=== PATIENT | female | born 1990 | race Caucasian/White ===

== ENCOUNTER 2020-03-16 18:55 | Inpatient (IN) | payer OTHER ==
[2020-03-16] MEDS ORDERED: VITAFOL-OB+DHA1 EACH PO (20:01)
[2020-03-16] MEDS ORDERED: TYLENOL325 M1 PO (20:02)
--- NOTE | 2020-03-16 21:19 | PR ---
[facility] [address] [place] [address] Signed Progress Notes IP Datetime Report Generated by CPN: 03/16/2020 21:19 PROGRESS NOTES: [id number] Impression: Normal Progression of Labor Procedures: Artificial ROM Plan: Continue Present Management; Anticipate Vaginal Delivery VITAL SIGNS: [id number] Vital Signs: Reviewed; Within Normal Limits EXAM: [id number] Dilatation: 7.0 Effacement: 50 Station: -3 Contractions: none MEMBRANES: [id number] Membranes Status: Ruptured Comments: Still not feeling many contractions, doing wel. FETUS A: [id number] Presentation: Vertex FETUS B: [id number] Signing Physician: Yomi Fall MD Copies: ~ *Electronically Signed* 03/16/202118 YOMI FALL MD PATIENT NAME: OLYA GAMA PROGRESS NOTE DATE OF : 86 PHYSICIAN: YOMI FALL MD RPT #: [id number] REPORT IS CONFIDENTIAL AND NOT TO BE RELEASED WITHOUT AUTHORIZATION
--- NOTE | 2020-03-17 10:56 | PR ---
[facility] [address] [place] [address] Signed PP Progress Notes Datetime Report Generated by CPN: 03/17/2020 10:55 SUBJECTIVE: [id number] Pain: Within Normal Limits Nausea/Vomiting: Denies Vital Signs: [id number] Vital Signs: Reviewed; Within Normal Limits Abdomen/Uterus: Normal Lochia: Normal Extremities: Normal Incision: Normal Exam Comments: dressing clean and dry IMPRESSION/PLAN/PROCEDURES: [id number] Impression: Normal Progression Plan: Continue Present Management Procedures: None Progress Notes: Doing well, without complaint, up sitting in chair, voiding without difficulty. tolerating food well. WIll try abdominal binder. Signing Physician: Yomi Fall MD Copies: ~ *Electronically Signed* 03/17/20 1055 YOMI FALL MD PATIENT NAME: OLYA GAMA PROGRESS NOTE DATE OF : 86 PHYSICIAN: YOMI FALL MD RPT #: [id number] REPORT IS CONFIDENTIAL AND NOT TO BE RELEASED WITHOUT AUTHORIZATION
--- NOTE | 2020-03-17 10:59 | PR ---
[facility] [address] [facility] [place] [address] Signed PP Progress Notes Datetime Report Generated by CPN: 03/17/2020 10:58 SUBJECTIVE: [id number] Pain: Within Normal Limits Nausea/Vomiting: Denies Vital Signs: [id number] Vital Signs: Reviewed; Within Normal Limits Abdomen/Uterus: Normal Lochia: Normal Extremities: Normal Incision: Normal Exam Comments: dressing clean and dry IMPRESSION/PLAN/PROCEDURES: [id number] Impression: Normal Progression Plan: Continue Present Management Procedures: None Progress Notes: Doing well, without complaint, Sixto sheikh removed this am. Signing Physician: Brayden Fall MD Copies: ~ *Electronically Signed* 03/17/20 1058 BRAYDEN FALL MD PATIENT NAME: OLYA GAMA PROGRESS NOTE DATE OF : 86 PHYSICIAN: BRAYDEN FALL MD RPT #: [id number] REPORT IS CONFIDENTIAL AND NOT TO BE RELEASED WITHOUT AUTHORIZATION
--- NOTE | 2020-03-17 11:00 | PR ---
[facility] [address] [facility] [place] [address] Signed PP Progress Notes Datetime Report Generated by CPN: 03/17/2020 11:00 SUBJECTIVE: [id number] Pain: Within Normal Limits Nausea/Vomiting: Denies Vital Signs: [id number] Vital Signs: Reviewed; Within Normal Limits Abdomen/Uterus: Normal Lochia: Normal Extremities: Normal Incision: Normal Exam Comments: dressing clean and dry IMPRESSION/PLAN/PROCEDURES: [id number] Impression: Normal Progression Plan: Continue Present Management Procedures: None Progress Notes: Doing well, without complaint, Sixto sheikh removed this am. Signing Physician: Brayden Fall MD Copies: ~ *Electronically Signed* 03/17/20 1100 BRAYDEN FALL MD PATIENT NAME: OLYA GAMA PROGRESS NOTE DATE OF : 86 PHYSICIAN: BRAYDEN FALL MD RPT #: [id number] REPORT IS CONFIDENTIAL AND NOT TO BE RELEASED WITHOUT AUTHORIZATION
--- NOTE | 2020-03-18 12:59 | PR ---
[facility] [address] [place] [address] Signed PP Progress Notes Datetime Report Generated by CPN: 03/18/2020 12:59 SUBJECTIVE: [id number] Pain: Within Normal Limits Nausea/Vomiting: Denies Vital Signs: [id number] Vital Signs: Reviewed; Within Normal Limits Notable Details: PP Hgb/Hct = 9.6/27.9 Abdomen/Uterus: Normal Lochia: Normal Extremities: Normal Incision: Normal Exam Comments: dressing clean and dry IMPRESSION/PLAN/PROCEDURES: [id number] Impression: Normal Progression Other Impression: PP Depression Plan: Continue Present Management Other Plans: Rx: Sertraline Procedures: None Progress Notes: Patient admitsd to being stressed, anxious, no thoughts of hurting self or baby, is feeling better that yesterday. Discussed PP Depression, treatment, medication. Chai feels medication would help her coping with PP period, so will start Sertraline, discussed risks vs benefiots. Questions answered. Signing Physician: Brayden Fall MD Copies: ~ *Electronically Signed* 03/18/20 1259 BRAYDEN FALL MD PATIENT NAME: OLYA GAMA PROGRESS NOTE DATE OF : 86 PHYSICIAN: BRAYDEN FALL MD RPT #: [id number] REPORT IS CONFIDENTIAL AND NOT TO BE RELEASED WITHOUT AUTHORIZATION
--- NOTE | 2020-03-19 12:13 | PR ---
[facility] [address] [facility] [place] [address] Signed PP Progress Notes Datetime Report Generated by CPN: 03/19/2020 12:13 SUBJECTIVE: [id number] Pain: Within Normal Limits Nausea/Vomiting: Denies Vital Signs: [id number] Vital Signs: Reviewed; Within Normal Limits Notable Details: PP Hgb/Hct = 9.6/27.9 Abdomen/Uterus: Normal Lochia: Normal Extremities: Normal Incision: Normal Exam Comments: dressing clean and dry IMPRESSION/PLAN/PROCEDURES: [id number] Impression: Normal Progression Other Impression: PP Depression Plan: Discharge Other Plans: Rx: Sertraline Procedures: None Progress Notes: Doing well, feeling better, without complaint, ready to go home. Signing Physician: Yomi Fall MD Copies: ~ *Electronically Signed* 03/19/20 1213 YOMI FALL MD PATIENT NAME: OLYA GAMA PROGRESS NOTE DATE OF : 86 PHYSICIAN: YOMI FALL MD RPT #: [id number] REPORT IS CONFIDENTIAL AND NOT TO BE RELEASED WITHOUT AUTHORIZATION
[2020-03-19] MEDS ORDERED: SERTRALINE HCL50 MG PO (21:45)
== END 2020-03-19 12:35 | disposition home or self-care (01) | DRG 806 ==
LOC: FBC 18:55 → FBCO 03-17 12:36 → EDSTATUS 03-17 18:02 → FBC 03-17 18:04
PROVIDERS: ADMIT General Practice; ATTEND General Practice
PROC: 10907ZC Drainage of Amniotic Fluid, Therapeutic from Products of Conception, Via Natural or Artificial Opening (ICD-10-PCS; 2020-03-16)
PROC: 00HU33Z Insertion of Infusion Device into Spinal Canal, Percutaneous Approach (ICD-10-PCS; 2020-03-16)
PROC: 3E0R3BZ Introduction of Anesthetic Agent into Spinal Canal, Percutaneous Approach (ICD-10-PCS; 2020-03-16)
PROC: 10E0XZZ Delivery of Products of Conception, External Approach (ICD-10-PCS; principal; 2020-03-17)
PROC: 0KQM0ZZ Repair Perineum Muscle, Open Approach (ICD-10-PCS; 2020-03-17)
DX: O70.1 Second degree perineal laceration during delivery (principal); O72.1 Other immediate postpartum hemorrhage; Z37.0 Single live birth; Z3A.40 40 weeks gestation of pregnancy; O99.345 Other mental disorders complicating the puerperium; F53.0 Postpartum depression; Z14.8 Genetic carrier of other disease; O71.89 Other specified obstetric trauma
CPT/HCPCS: 01960; 36415; 85027; A9270; J2590; J2795; J3010; J7121

== ENCOUNTER 2020-03-19 21:27 | Emergency (ER) | payer OTHER ==
[~2020-03-19] VITALS: Ht 185.4 cm; Wt 102.1 kg
[~2020-03-19 21:27] MED LIST: TYLENOL325 M1 PO; VITAFOL-OB+DHA1 EACH PO
[2020-03-19] MEDS ORDERED: SERTRALINE HCL50 MG PO (21:45)
== END 2020-03-20 02:37 | disposition home or self-care (01) ==
LOC: ED 21:27
DX: O99.345 Other mental disorders complicating the puerperium (principal); F53.0 Postpartum depression; Z79.899 Other long term (current) drug therapy
CPT/HCPCS: 80053; 80176; 81001; 84443; 85025; 99284; G0480